=== PATIENT | male | born 1975 | race Caucasian/White ===

== ENCOUNTER 2019-10-18 13:10 | Emergency (ER) | payer MEDICAID ==
[~2019-10-18] VITALS: Ht 177.8 cm; Wt 90.9 kg
[2019-10-18 13:56] VITALS: Ht 177.8 cm; Wt 90.9 kg
[2019-10-18] MEDS ORDERED: DEPAKOTE500 MG PO ×2 (13:57→14:03)
[2019-10-18] MEDS ORDERED: MINIPRESS1 MG PO ×2 (13:58→14:03)
[2019-10-18] MEDS ORDERED: SEROQUEL200 MG PO ×2 (13:58→14:03)
[2019-10-18] MEDS ORDERED: ZOLOFT100 MG PO ×2 (13:58→14:03)
[2019-10-18 14:16] VITALS: BP 143/84
== END 2019-10-18 14:17 | disposition home or self-care (01) ==
LOC: D.ER 13:10
DX: Z76.0 Encounter for issue of repeat prescription (principal)